=== PATIENT | male | born 1950 | race Caucasian/White ===

== ENCOUNTER 2022-08-02 16:58 | Emergency (ER) | payer MEDICARE, BC, SELFPAY ==
[2022-08-02] VITALS (7 sets, daily range): BP systolic 126–140; BP diastolic 69–81; PULSE 67; RESP 16; TEMP 36.7; O2SAT 91–96
--- NOTE | 2022-08-02 17:28 | CTR_ITS ---
PROCEDURE INFORMATION: Exam: CT Head Without Contrast Exam date and time: 08/02/2022 5:40 PM Age: 72 years old Clinical indication: Stroke-like symptoms; Altered mental status/memory loss; Additional info: Symptoms of acute stroke TECHNIQUE: Imaging protocol: Computed tomography of the head without contrast. Radiation optimization: All CT scans at this facility use at least one of these dose optimization techniques: automated exposure control; mA and/or kV adjustment per patient size (includes targeted exams where dose is matched to clinical indication); or iterative reconstruction. Other protocol: This patient has received 0 known CTs and 0 known cardiac nuclear medicine studies in the 12 months prior to the current study. Other technique: STROKE PROTOCOL was implemented. COMPARISON: No relevant prior studies available. RADIATION DOSE METRICS: Total DLP (mGy-cm): 1098.88 FINDINGS: Brain: Severe calcified intracranial atherosclerotic vessel disease. Mild to moderate cerebral atrophy and ischemic leukoencephalopathy. Cerebral ventricles: No ventriculomegaly. Paranasal sinuses: Mild left sphenoid sinus disease. Mild right ethmoid sinus disease. Mastoid air cells: Visualized mastoid air cells are well aerated. Bones/joints: Unremarkable. No acute fracture. Soft tissues: Unremarkable. CT/CT head thrombolytic [id number] IMPRESSION: 1. Mild bilateral paranasal sinus disease. 2. No acute intracranial findings. ASSESSMENT: ASPECTS ([place] Stroke Program Early CT Score) is 10.
--- NOTE | 2022-08-02 17:29 | W.ED.AMS ---
HPI - Altered Mental Status General: Chief Complaint: Altered Mental Status Stated Complaint: fall x2 Time Seen by Provider: 08/02/22 17:21 Source: patient and family Mode of arrival: ambulatory Limitations: no limitations History of Present Illness: This patient was brought to the emergency department by his family who are concerned. They state that they noted that he was attempting to get out of his chair this afternoon and got a collapsed forward on his knees but did not have a loss of consciousness or strike his head etc. They state that he got back up and then walked in a complete [place] and fell again on his side. He states that he did not suffer of loss of consciousness second fall either. He remained responsive. They do note that he has been kind of seemingly slurring his speech this afternoon. The patient denies any symptoms at this time. States that he is not sure why he is here but he thinks it is probably because he has been drinking. His family support the notion that he is drank approximately 3 drinks this afternoon and he mixed them himself. He normally rarely drinks. He does not have a history of cerebrovascular accidents but does have a history of atrial fibrillation and is on Eliquis for stroke reduction. No history of diabetes or other heart disease other than his atrial fibrillation. Timing confirmed by: family member Review of Systems Const: Denies: fever(s) or chills Eyes: Denies: change in vision ENMT: Denies: odynophagia, nasal discharge or nasal congestion Card: Denies: chest pain, palpitations, lightheadedness, syncope or pre-syncope Resp: Denies: dyspnea, productive cough or non-productive cough GI: Denies: nausea, vomiting or diarrhea : Denies: flank pain, difficulty urinating, dysuria, urinary frequency, urinary hesitancy, urinary incontinence or hematuria Musc: Denies: neck pain, back pain, extremity pain or extremity swelling Skin/Breast: Denies: rash Neuro: Reports: confusion and Slurred speech present; Denies: headache(s), numbness in extremities, weakness in extremities or seizure-like activity Endo: Denies: polyuria or polydipsia Physical Exam Narrative: Patient is alert makes good eye contact. He answers questions generally in a goal-directed fashion. Const: COMMON NORMALS: no acute distress, average body habitus, healthy appearing and alert GENERAL APPEARANCE: cooperative and comfortable ORIENTATION/CONSCIOUSNESS: Yes awake and Yes oriented to person HENMT: COMMON NORMALS: normocephalic, Normal nasal mucous membranes and turbinates present, moist oral mucous membranes and oropharynx normal HEAD & SCALP: normocephalic FACE & SINUS: normal facial exam and face symmetric NOSE: Normal nasal mucous membranes and turbinates present Eye: COMMON NORMALS: Equal, round and reactive pupils present, EOMs intact bilaterally and conjunctivae normal CONJUNCTIVA: Yes conjunctivae normal PUPIL: Yes Equal, round and reactive pupils present Neck/C-Spine: COMMON NORMALS: full ROM, supple, no JVD and No carotid bruits Chest: COMMONS NORMALS: normal inspection of the chest and normal palpation of entire chest wall Resp: COMMON NORMALS: normal respiratory effort, No retractions, No use of accessory muscles and clear to auscultation bilaterally AUSCULTATION: clear to auscultation bilaterally Cardio: COMMON NORMALS: no JVD, regular rate, regular rhythm, No murmurs present (Cardio) and Peripheral pulses 2+ throughout RATE: regular rate RHYTHM: regular rhythm PERIPHERAL PULSES: Peripheral pulses 2+ throughout GI: COMMON NORMALS: Soft to palpation and non-tender PALPATION: Yes Soft to palpation Back/Pelvis: COMMON NORMALS: thoracic and lumbar spine normal to inspection, no thoracic nor lumbar tenderness, thoraco-lumbar ROM normal and straight leg raise negative bilaterally Extremity: COMMON NORMALS: normal to inspection, full ROM, capillary refill normal, no calf tenderness and no pedal edema Neuro: COMMON NORMALS: moves all extremities, no focal motor deficits and no sensory deficits noted SENSORIUM/ORIENTATION: Yes alert and Yes oriented to person CRANIAL NERVES: Yes CN normal except as noted COORDINATION/BALANCE: [id number] test normal and pbbf-sb-[id number] test normal SPEECH: speech normal MOTOR EXAM: 5/5 motor strength present throughout and Pronator motor function not present COORDINATION: [id number]-nz-[id number] test normal and bhtk-lf-zqdr test normal OTHER: NIH stroke score is 0 time of initial evaluation Psych: COMMON NORMALS: mental status grossly normal and cooperative Skin: COMMON NORMALS: no rashes or lesions noted, no wounds and turgor normal GENERAL SKIN EXAM: no rashes or lesions noted and turgor normal Course Reevaluation(s): Reevaluation #1: Patient remains alert and responsive readily readily answers questions although he thinks he is somewhere other than here in [place]. No new or focal findings otherwise. Discussed current findings with patient and family. Time: 19:36 Reevaluation #2: Patient was reexamined. He states he feels much better. He has more cogent regarding his surroundings. Discussed again his findings particularly his blood alcohol level. He admits that he mixed drinks himself thought he had not mix them too strong but he readily admits that he certainly could have. We discussed findings there implications and the limitations with the patient and spouse. Questions were answered. At this point he does not have any evidence of a ongoing emergency medical condition. Does have hematuria but has not had any systemic symptoms to this such as fevers, dysuria, etc. we will culture his urine at this time and withhold any empiric treatment given his clinical picture. Time: 21:31 Vital Signs: Vital signs: Vital Signs Temperature 98.1 F 08/02/22 17:14 Pulse Rate 67 08/02/22 17:14 Respiratory Rate 16 08/02/22 17:14 Blood Pressure 129/71 08/02/22 18:30 Pulse Oximetry 94 08/02/22 18:15 Oxygen Delivery Me thod 08/02/22 18:30 Oxygen Flow Rate 2 08/02/22 18:30 MDM - Altered Mental Status Medical Decision Making Patient was brought to the emergency department by family members who are concerned about the patient's seemingly altered mental status. He is visiting here at family's location. He admitted to drinking alcohol this afternoon of the mixed drinks that he mixed himself. There have been no history of trauma, fevers, stroke etc. He has a history of intermittent atrial fibrillation that he is aware of when he goes into atrial fibrillation and takes Eliquis for stroke reduction. There have been no recent history of other systemic illness. He was not having a chest pain, or other cardiopulmonary symptoms. His emergency department evaluation included evaluating for potential intracranial hemorrhage, arrhythmia, electrolyte abnormality etc. CT scan was reassuring and laboratories were notable for a elevated blood alcohol level. During his emergency department stay he received continued observation and reevaluation, IV hydration. During observation he continued to improvement regarding his sensorium. Repeated examinations did not reveal any evidence of focal neurologic findings or other concerning findings such as arrhythmia etc. Only other notable finding was hematuria with small amount of pyuria on urinalysis however no systemic symptoms fever chills etc. the would make a significant urinary tract infection etc. likely at this time. We will culture urine to ensure no growth. All findings were revealed and discussed with patient and spouse. We did recommend additional follow-up when they return back home to include repeat urinalysis and additional work-up for other potential contributing conditions other than alcoholic at this time. We advised him to abstain from alcohol. Lab Data I reviewed the patient's lab results. 08/02/22 17:28 08/02/22 17: Radiology Impressions Head CT 08/02/22 17: IMPRESSION: 1. Mild bilateral paranasal sinus disease. 2. No acute intracranial findings. ASSESSMENT: ASPECTS ([place] Stroke Program Early CT Score) is 10. Laboratory Results WBC 10.6 10^3/uL (4.0-10.0) H 08/02/22 17: RBC 4.35 10^6/uL (4.1-5.3) 08/02/22 17: Hgb 11.9 g/dL (11.7-16.6) 08/02/22 17: Hct 38.8 % (42.0-52.0) L 08/02/22 17: MCV 89.2 fl (80-94) 08/02/22 17: MCH 27.4 pg (28.0-34.0) L 08/02/22 17: MCHC 30.7 g/dL (30.0-36.0) 08/02/22 17: RDW 14.6 % (12.1-15.1) 08/02/22 17: Plt Count 307 10^3/cmm (130-400) 08/02/22 17: MPV 9.3 fL (7.4-10.4) 08/02/22 17: Neut % (Auto) 63.6 % 08/02/22 17: Lymph % (Auto) 21.9 % 08/02/22 17: [place] % (Auto) 9.3 % 08/02/22 17: Eos % (Auto) 4.0 % 08/02/22: Baso % (Auto) 1.0 % 08/02/22: Neut # (Auto) 6.73 10^3/uL (1.8-7.7) 08/02/22 17:28 Lymph # (Auto) 2.3 10^3/uL (0.8-4.8) 08/02/22 17:28 [place] # (Auto) 1.0 10^3/uL (0.2-0.9) H 08/02/22 17: Eos # (Auto) 0.4 10^3/uL (0.0-0.8) 08/02/22: Baso # (Auto) 0.1 10^3/uL (0.0-0.1) 08/02/22 17: Nucleated RBC % (auto) 0 % 08/02/22: Nucleated RBCs # 0.0 /100WBC 08/02/22: PT 15.20 SECONDS (12.1-14.9) H 08/02/22: INR 1.16 (0.8-1.2) 08/02/22: APTT 24.7 SECONDS (23.9-36.7) 08/02/22 17: Sodium 142 mmol/L (136-145) 08/02/22 17: Potassium 4.1 mmol/L (3.5-5.1) 08/02/22: Chloride 104 mmol/L (98-107) 08/02/22: Carbon Dioxide 24 mmol/L (22-29) 08/02/22: Anion Gap 18.1 (5-19) 08/02/22: BUN 27 mg/dL (8-23) H 08/02/22: Creatinine 1.4 mg/dL (0.7-1.2) H 08/02/22: GFR Calculation Not Reportable 08/02/22: Glucose 149 mg/dL (65-115) H 08/02/22: Calculated Osmolality 302 mOsm/kg (285-295) H 08/02/22: Calcium 9.3 mg/dL (8.5-10.5) 08/02/22 17: Total Bilirubin 0.2 mg/dL (0.15-1.2) 08/02/22 17: AST 13 U/L (0-40) 08/02/22: ALT 11 U/L (0-41) 08/02/22 17:28 Alkaline Phosphatase 100 U/L (40-130) 08/02/22 17:28 Total Protein 6.8 g/dL (6.6-8.7) 08/02/22 17:28 Albumin 3.9 g/dL (3.5-5.2) 08/02/22 17:28 Globulin 2.9 g/dL (1.3-4.6) 08/02/22 17:28 Urine Color Yellow (Yellow) 08/02/22 08:07 Urine Appearance Hazy (CLEAR) A 08/02/22 08:07 Urine pH 5 (5-7) 08/02/22 08:07 Ur Specific [place] 1.030 (1.005-1.030) 08/02/22 08:07 Urine Protein 1+ (Negative) H 08/02/22 08:07 Urine Glucose (UA) Norm (Normal) 08/02/22 08:07 Urine Ketones 1+ (Negative) H 08/02/22 08:07 Urine Blood 3+ (Negative) H 08/02/22 08:07 Urine Nitrate Negative (Negative) 08/02/22 08:07 Urine Bilirubin Neg (Negative) 08/02/22 08:07 Urine Urobilinogen Neg mg/dL (Negative) 08/02/22 08:07 Ur Leukocyte Esterase Negative (Negative) 08/02/22 08:07 Urine RBC 15-25 /hpf (0-2) H 08/02/22 08:07 Urine WBC 5-10 /hpf (0-5) H 08/02/22 08:07 Ur Squamous Epith Cells 0-4 /hpf (0-5) H 08/02/22 08:07 Amorphous Sediment Not Reportable 08/02/22 08:07 Urine Bacteria Trace /hpf (NONE) 08/02/22 08:07 Hyaline Casts 0-4 /lpf H 08/02/22 08:07 Urine Mucus Trace /hpf 08/02/22 08:07 Urine Opiates Screen Negative ng/mL (Negative) 08/02/22 08:07 Ur Barbiturates Screen Negative ng/mL (Negative) 08/02/22 08:07 Ur Phencyclidine Scrn Negative ng/mL (Negative) 08/02/22 08:07 Ur Amphetamines Screen Negative ng/mL (Negative) 08/02/22 08:07 U Benzodiazepines Scrn Negative ng/mL (Negative) 08/02/22 08:07 Urine Cocaine Screen Negative ng/mL (Negative) 08/02/22 08:07 U Marijuana (THC) Screen Negative ng/mL (Negative) 08/02/22 08:07 Ethyl Alcohol 228 mg/dL (0-10) H 08/02/22 17:28 EKG Data EKG 1: I personally reviewed and interpreted this EKG as follows: Interpretation: Contemporaneous review of the EKG shows a ventricular rate of 62 bpm. Normal intervals, normal axis. As normal sinus rhythm with no acute ischemic changes. Slightly hyperdynamic T waves noted. Discharge Plan Discharge Patient Disposition: Home Clinical Impression: Alcoholic intoxication Condition: Stable Discharge Orders: Discharge ED (Routine); Ordered 08/02/22 Ordered By: nJ Jc Discharge Diet: Usual diet Discharge Activity: Resume usual activity Patient Instructions: Opioid Safety, Pain Management Activity Restrictions/Additional Instructions: As we discussed we did not find anything of concern this evening in the emergency department that would suggest you had a stroke or other concerning condition. The only finding of significance otherwise was you had some evidence that you had some blood in your urine. As we discussed we are culturing your urine to ensure that there is no growth of any bacteria or infection. We do recommend that you have a repeat urine test done upon your return home. If it anytime you develop any concerning symptoms while you are in the surgery return to this or the nearest emergency department. Coding Level of Care Code ED Sightseeing Guide for Ana Daniel
[2022-08-02 17:36] LABS: Basophils # 0.1 10^3/uL (0.0-0.1); Eosinophils # 0.4 10^3/uL (0.0-0.8); Hematocrit 38.8 % (42.0-52.0); Hemoglobin 11.9 g/dL (11.7-16.6); Lymphocytes # 2.3 10^3/uL (0.8-4.8); Lymphocytes % 21.9 %; Mean Corpuscular HGB Conc 30.7 g/dL (30.0-36.0); Mean Corpuscular Hemoglobin 27.4 pg (28.0-34.0); Mean Corpuscular Volume 89.2 fl (80-94); Mean Platelet Volume 9.3 fL (7.4-10.4); Monocytes % 9.3 %; Neutrophils # 6.73 10^3/uL (1.8-7.7); Neutrophils % 63.6 %; Nucleated Red Blood Cells % 0 %; Platelet Count 307 10^3/cmm (130-400); Red Blood Count 4.35 10^6/uL (4.1-5.3); Red Cell Distribution Width 14.6 % (12.1-15.1); White Blood Count 10.6 10^3/uL (4.0-10.0)
--- NOTE | 2022-08-02 17:37 | ECG_ITS ---
[facility] Test Date: 2022-08-02 Pat Name: Michael Groves Department: Room: Gender: Male Assistant Therapy Aide: : 1950 Requested By: Jn Jc Order Number: [id number] Thuy MD: Waldemar Menchaca M.D. Measurements Intervals [place] Rate: 62 P: 83 DC: 168 QRS: 72 QRSD: 114 T: 75 QT: 402 QTc: 410 Interpretive Statements SINUS RHYTHM MODERATE INTRAVENTRICULAR CONDUCTION DELAY [110+ ms QRS DURATION] No previous ECG available for comparison Electronically Signed On 08-03-2022 8:39:16 [employer]OYMENT LAW SPECIALIST by Waldemar Menchaca M.D. [email or web address] [id number]
[2022-08-02] MEDS: ondansetron 2 mg/ML SDV 2 mL 4 MG IVP (17:52)
[2022-08-02 17:54] LABS: INR 1.16 (0.8-1.2)
[2022-08-02 17:56] LABS: Partial Thromboplastin Time 24.7 SECONDS (23.9-36.7)
[2022-08-02 18:03] LABS: Alanine Aminotransferase 11 U/L (0-41); Albumin Level 3.9 g/dL (3.5-5.2); Alcohol Level 228 mg/dL (0-10); Alkaline Phosphatase 100 U/L (40-130); Anion Gap 18.1 (5-19); Aspartate Amino Transferase 13 U/L (0-40); Blood Urea Nitrogen 27 mg/dL (8-23); Calcium 9.3 mg/dL (8.5-10.5); Carbon Dioxide 24 mmol/L (22-29); Chloride 104 mmol/L (98-107); Globulin 2.9 g/dL (1.3-4.6); Glucose 149 mg/dL (65-115); Osmolality Calculated 302 mOsm/kg (285-295); Potassium 4.1 mmol/L (3.5-5.1); Sodium 142 mmol/L (136-145); Total Bilirubin 0.2 mg/dL (0.15-1.2); Total Protein 6.8 g/dL (6.6-8.7)
[2022-08-02] MEDS: sodium chloride 0.9% 250 ML 500 ML IV (18:12)
[2022-08-02 18:21] LABS: Add Urine Microscopic? YES; Bilirubin Urine Neg (Negative); Blood Urine 3+ (Negative); Glucose Urine UA Norm (Normal); Ketones Urine 1+ (Negative); Leukocyte Esterase Urine Negative (Negative); Nitrate Urine Negative (Negative); Protein Urine 1+ (Negative); Urine Appearance Hazy (CLEAR); Urine Color Yellow (Yellow); Urobilinogen Urine Neg (Negative); pH Urine 5 (5-7)
[2022-08-02 18:24] LABS: Bacteria Urine TRACE /hpf; Hyaline Casts Urine 0-4 /lpf; Mucus Urine TRACE /hpf; RBC Urine 15-25 /hpf (0-2); Squamous Epithelial Cell Urine 0-4 /hpf (0-5)
[2022-08-02 18:25] LABS: Add Urine Culture? Yes; Amphetamines Screen Urine Negative (Negative); Barbiturates Screen Urine Negative (Negative); Cocaine Screen Urine Negative (Negative); PCP Screen Urine Negative (Negative); THC Screen Urine Negative (Negative)
[2022-08-02 18:26] LABS: Benzodiazepines Screen Urine Negative (Negative); Opiate Screen Urine Negative (Negative)
== END 2022-08-02 21:38 | disposition home or self-care (01) ==
PROVIDERS: Emergency Provider Emergency Medicine
DX: F10.129 Alcohol abuse with intoxication, unspecified (principal); Y90.7 Blood alcohol level of 200-239 mg/100 ml
CPT/HCPCS: 70450; 80053; 80306; 80307; 81001; 85025; 85610; 85730; 87086; 93005; 96361; 96374; 99285; J2405; J7050